=== PATIENT | female | born 1975 | race Caucasian/White ===

== ENCOUNTER 2020-05-06 19:24 | Emergency (ER) | payer BC ==
[~2020-05-06] VITALS: Ht 165.1 cm; Wt 82.7 kg
[~2020-05-06 19:24] MED LIST: ATOR20TA58; DOCU-109 PO; LISI1TAB23; METF-658 PO; ONDA4TAB10 SL; OXYC1TAB7 PO; SERT100T8 PO; SPIR25TA5 PO
--- NOTE | 2020-05-06 20:46 | PHYS DOC ---
Past Medical History Past Medical History: Depression, Diabetes-Type II, High Cholesterol, Hyp ertension, Other Additional Past Medical Histor: ppos Past Surgical History: Other Additional Past Surgical Histo: eye sx at age 7. Smoking Status: Never Smoker Alcohol Use: None Drug Use: None General Adult EDM: Chief Complaint: ACCIDENTAL INGESTION HPI: HPI: Patient is a 45 year old Female who presents with complaints of eating marijuana edibles today. Pt reports recently quitting her job for personal reasons and was feeling down when she decided to eat 2 home made marijuana gummy candies and a home made marijuana brownie earlier today. She states she does not usually ingest marijuana or other illicit drugs, reporting only very occasional marijuana use. She denies cigarette smoking. Denies drinking alcohol. Pts became concerned when she starting acting bizarre just [employer] and brought her in for evaluation. Pt denies denies homicidal or suicidal ideation. Pt denies nausea, vomiting, diarrhea, constipation or abdominal pains. Denies fever, chills, congestion, chest pains, shortness of breath, urinary problems, skin rashes, or swollen glands. Pt reports she feels very high. Pt states she is not sure if there was any other illicit drugs mixed in the marijuana edibles she consumed. Review of Systems: Review of Systems: Constitutional: Denies fever or chills. Eyes: Denies change in visual acuity. HENT: Denies nasal congestion or sore throat. Respiratory: Denies cough or shortness of breath. Cardiovascular: Denies chest pain or edema. GI: Denies abdominal pain, nausea, vomiting, bloody stools or diarrhea. : Denies dysuria. Musculoskeletal: Denies back pain. Integument: Denies rash. Neurologic: Denies headache, focal weakness, reports feeling high from eating marijuana edibles. Lymphatic: Denies swollen glands. Psychiatric: Reports depression and anxiety after quitting job recently, denies homicidal or suicidal ideation. Heart Score: Risk Factors: Risk Factors: DM, Current or recent (<one month) smoker, HTN, HLP, family history of CAD, obesity. Risk Scores: Score 0 - 3: 2.5% MACE over next 6 weeks - Discharge Home Score 4 - 6: 20.3% MACE over next 6 weeks - Admit for Clinical Observation Score 7 - 10: 72.7% MACE over next 6 weeks - Early Invasive Strategies Current Medications: Reports being treated with Rx Welbutrin for depression/anxiety but feels the medication is not helping. Also reports Metformin and lisinopril. Allergies: Allergies: Allergies Coded Allergies Type Severity Reaction Last Updated Verified No Known Drug Allergies 03/23/17 No Physical Exam: PE: Constitutional: Well developed, well nourished, no acute distress, non-toxic appearance. HENT: Normocephalic, atraumatic, bilateral external ears normal, oropharynx moist, no oral exudates, nose normal. Eyes: PERRLA, EOMI, conjunctiva normal, no discharge. Neck: Normal range of motion, no tenderness, supple, no stridor. Cardiovascular:Heart rate regular rhythm, no murmur, heart sounds S1, S2 per auscultation. Lungs & Thorax: Bilateral breath sounds clear to auscultation all ling youngblood. Abdomen: Bowel sounds normal all 4 quadrants, soft, no tenderness, no masses, no pulsatile masses. Skin: Warm, dry, no erythema, no rash. Back: No tenderness, no CVA tenderness. Extremities: No tenderness, no cyanosis, no clubbing, ROM intact, no edema. Neurologic: Alert and oriented X 3, normal motor function, normal sensory function, no focal deficits noted. Psychologic: Affect normal, judgement normal, mood normal. Current Patient Data: Vital Signs: Vital Signs Date Time Temp Pulse Resp B/P (MAP) Pulse Ox O2 Delivery O2 Flow Rate FiO2 05/06/20 19:50 98.4 98.4 05/06/20 19:37 102 14 130/73 (92) 97 Room Air EKG: EKG: [] Radiology/Procedures: Radiology/Procedures: [] Course & Med Decision Making: Course & Med Decision Making Pertinent Labs and Imaging studies reviewed. (See chart for details) 45 yo female presents with family concerned after she ate marijuana edibles and acting bizarre afterwards. ED nursing staff contacted poison control whom indicated they would have not recommeded pt come to seek medical care if they were to have been contacted prior to her arrival to the emergency department, recommended supportive care for symptoms. Labs were obtained, she was not , her urine was not infected, her elevated blood sugar is most likely due to eating high sugar content foods and not taking her evening dose of metformin prior to her arrival. Her urine drug screen positive for only marijuana. The PAT team was consulted and examined by Mariluz during her ER stay, Mariluz agreed she is not suicidal or homicidal and does not meet admission criteria for mental health. The pt was in a stuporous state during my physical examination as indicated by triage note. Reviewed findings with pt and discussed discharge to home with follow up with her mental health providers which she and her family agreed to. Pt was found to remain clinically sober upon re-ex amination and discharged to home. Vital signs stable during ER stay. Dragon Disclaimer: Dragon Disclaimer: This electronic medical record was generated, in whole or in part, using a voice recognition dictation system. Departure Departure Impression: Primary Impression: Marijuana intoxication Qualified Codes: F12.920 - Cannabis use, unspecified with intoxication, uncomplicated Disposition: 01 DC HOME SELF CARE/HOMELESS Condition: STABLE Referrals: ALONSO HURTADO MD (PCP) Patient Instructions: Marijuana Abuse and Chemical Dependency Additional Instructions: Refrain from future marijuana consumption. Follow-up with your primary care physician as needed, return to the emergency department for further concerns. TITO MITCHELL APRN May 06, 2020 20:46
[2020-05-06 20:56] LABS: BASO % 0 % (0-3); EOS # 0.1 x10^3/uL (0.0-0.7); EOS % 0 % (0-3); HEMATOCRIT 40.2 % (36.0-47.0); HEMOGLOBIN 13.4 g/dL (12.0-15.5); LYMPH # 1.8 x10^3/uL (1.0-4.8); LYMPH % 11 % (24-48); MEAN CORPUSCULAR HEMOGLOBIN 27 pg (25-35); MEAN CORPUSCULAR HGB CONC 33 g/dL (31-37); MEAN CORPUSCULAR VOLUME 82 fL (79-100); MONO % 6 % (0-9); NEUT # 14.3 x10^3/uL (1.8-7.7); NEUT % 83 % (31-73); PLATELET COUNT 229 x10^3/uL (140-400); RED BLOOD COUNT 4.89 x10^6/uL (3.50-5.40); RED CELL DISTRIBUTION WIDTH 13.5 % (11.5-14.5); WHITE BLOOD COUNT 17.3 x10^3/uL (4.0-11.0)
[2020-05-06 21:04] LABS: CALCIUM 9.3 mg/dL (8.5-10.1); CREATININE 0.9 mg/dL (0.6-1.0); GFR 67.7; POTASSIUM 4.6 mmol/L (3.5-5.1)
[2020-05-06 21:11] LABS: ALBUMIN 3.9 g/dL (3.4-5.0); ALBUMIN/GLOBULIN RATIO 1.3 (1.0-1.7); TOTAL BILIRUBIN 0.2 mg/dL (0.2-1.0); TOTAL PROTEIN 6.8 g/dL (6.4-8.2)
[2020-05-06 21:20] LABS: BILIRUBIN,URINE NEGATIVE (NEG); CLARITY,URINE CLEAR; COLOR,URINE YELLOW; NITRITE,URINE NEGATIVE (NEG); PROTEIN,URINE NEGATIVE (NEG-TRACE); UROBILINOGEN,URINE 0.2 mg/dL (0.2 mg/dL)
[2020-05-06 21:26] LABS: BARBITURATES NEG (NEG); BENZODIAZEPINES NEG (NEG); CANNABINOIDS POS (NEG); COCAINE NEG (NEG); METHADONE NEG (NEG); OPIATES NEG (NEG); PHENCYCLIDINE NEG (NEG)
[2020-05-06 21:27] LABS: BACTERIA,URINE FEW /HPF (0-FEW); RBC,URINE 0 /HPF (0-2)
[2020-05-06 21:30] LABS: AMPHETAMINE/METHAMPHETAMINE NEG (NEG)
[2020-05-06 21:50] LABS: % BANDS 8 % (0-9); % LYMPHS 21 % (24-48); % MONOS 2 % (0-10); % SEGS 69 % (35-66)
[2020-05-06 21:51] LABS: PLT ESTIMATE ADEQUATE (ADEQUATE)
[2020-05-06 23:00] VITALS: BP 141/89
== END 2020-05-06 23:01 | disposition home or self-care (01) ==
LOC: ER 19:24
DX: F12.929 Cannabis use, unspecified with intoxication, unspecified (principal); E11.9 Type 2 diabetes mellitus without complications; E78.00 Pure hypercholesterolemia, unspecified; I10 Essential (primary) hypertension; F32.9 Major depressive disorder, single episode, unspecified
CPT/HCPCS: 36415; 80053; 80307; 81001; 81025; 85007; 85025; 99285